=== PATIENT | female | born 1960 | race Caucasian/White ===

== ENCOUNTER 2016-07-11 17:48 | Emergency (ER) | payer MEDICARE, MEDICAID ==
[~2016-07-11 17:48] MED LIST: ABILIFY; ABILIFY5 MG PO; ADVAIR 50028 BLISTER INH; ALBUTEROL0.83 MG/ML INH; AMBIEN10 MG PO; DELTASONE10 MG PO; DICLOFENAC SODI75 MG PO; IPRATROPIUM; LEVAQUIN750 M1 PO; LEVAQUIN750 MG PO; LIDODERM30 EA TP; MOTRIN600 MG PO; MUCINEX600 M1 PO; OMEPRAZOLE20 MG PO; OS-CAL 500500 MG/TA1 PO; PREDNISONE; PREDNISONE10 M1 PO; PREDNISONE20 MG PO; PREDNISONE5 MG PO; SERTRALINE HCL100 M1 PO; SINGULAIR10 MG PO; SPIRIVA18 MCG IH; SYMBICORT; SYMBICORT 16010.2 GM IH; THEO PO; TRAZODONE HCL100 M1 PO; TRAZODONE HCL100 MG PO; WELLBUTRIN XL150 MG
[2016-07-11] MEDS ORDERED: PROAIR HFA8.5 GM INH (18:01)
[2016-07-11] MEDS ORDERED: ADVAIR 50028 BLISTE1 PO (18:02)
[2016-07-11] MEDS ORDERED: FLONASE ALLERG9.9 ML (18:02)
[2016-07-11] MEDS ORDERED: ASTEPRO205.5 MCG/ (18:03)
[2016-07-11] MEDS ORDERED: BENADRYL ALLERG25 M1 PO (18:04)
[2016-07-11] MEDS ORDERED: [UNRECOGNIZED DRUG - OTHER] PO (18:05)
[2016-07-11 18:42] LABS: BASO % 0.6 % (0-2); BASO ABSOLUTE COUNT 0.1 tho/cmm (0.0-0.2); EOS % 2.3 % (0-7); EOSINOPHIL ABSOLUTE COUNT 0.3 tho/cmm (0.0-0.7); HGB-HEMOGLOBIN 13.8 gm/dl (12.0-15.5); IMMATURE GRANULOCYTES ABSOLUTE 0.07 tho/cmm (0-0.03); IMMATURE GRANULOCYTES PERCENT 0.6 % (0-0.3); LYMPH % 31.4 % (20-45); LYMPH ABSOLUTE COUNT 3.4 tho/cmm (0.8-4.5); MCHC MEAN CORPUSCULAR HGB CONC 32.9 % (32.0-36.0); MCV (MEAN CELL VOLUME) 88.2 fl (82.0-96.0); MEAN PLATELET VOLUME 10.2 cmc (9.4-12.4); MONO % 6.4 % (0-12); MONOCYTE ABSOLUTE COUNT 0.7 tho/cmm (0.0-1.2); NEUTROPHIL ABSOLUTE COUNT 6.4 tho/cmm (1.6-8.0); NEUTROPHIL-AUTOMATED 6.4 tho/cmm (1.6-8.0); NEUTROPHILS % 58.7 % (40-80); PLATELET COUNT 277 tho/cmm (150-450); RED BLOOD COUNT 4.76 mil/cmm (4.00-5.20); RED CELL DISTRIBUTION WIDTH 13.5 % (12.4-16.4); WHITE BLOOD COUNT 10.9 tho/cmm (4.0-10.0)
[2016-07-11 18:55] LABS: ANION GAP 11 mmol/L (0-20); BLOOD UREA NITROGEN 20 mg/dl (6-24); CALCIUM 8.8 mg/dl (8.5-10.5); CARBON DIOXIDE-VENOUS 28 mmol/L (22-32); CHLORIDE 108 mmol/l (96-110); CREATININE 0.99 mg/dl (0.50-1.10); GLUCOSE 177 mg/dL (70-110); SODIUM 143 mmol/L (135-145); eGFR VALUE FOR BLACK 73 mL/Min
[2016-07-11 18:56] LABS: POTASSIUM 4.2 mmol/L (3.7-5.1)
== END 2016-07-11 20:54 ==
LOC: EDMED 17:48
PROVIDERS: Emergency Medicine
DX: J20.9 Acute bronchitis, unspecified (principal); J45.909 Unspecified asthma, uncomplicated; Z79.51 Long term (current) use of inhaled steroids